=== PATIENT | male | born 1955 | race Caucasian/White ===

== ENCOUNTER 2024-08-03 16:23 | Emergency (ER) | payer BC ==
[2024-08-03] MEDS: cefTRIAXone 1 GM Vial IM ONE (17:14)
== END 2024-08-03 17:39 | disposition home or self-care (01) ==
LOC: FB.ED 16:23
DX: K04.7 Periapical abscess without sinus (principal); F17.210 Nicotine dependence, cigarettes, uncomplicated; Z79.899 Other long term (current) drug therapy
CPT/HCPCS: 96372; 99282; J0696